=== PATIENT | female | born 1965 | race American Indian/Alaskan Native ===

== ENCOUNTER 2020-07-16 02:34 | Emergency (ER) | payer MEDICARE ==
--- NOTE | 2020-07-16 04:04 | Emergency Department Report ---
HPI - General Chief Complaint: Medical Clearance Time Seen by Provider: 07/16/20 02:59 - HPI HPI: This is a 54-year-old female who presents to the emergency department with a complaint of some right knee pain that started earlier today. The patient had a total knee replacement done at [facility] on 07/09. She just started physical therapy today. Afterwards she felt like the knee and leg was swollen, warm, and she felt like she was having some numbness to the right foot and toes. She called her orthopedist and was told to go to the emergency department to check for blood clots. The patient is on gabapentin and oxycodone for pain. She is on Keflex and she is on Xarelto. She has a history of breast cancer, and diabetes. She denies any fever, nausea, vomiting, chest pain, shortness of breath. ED Past Medical Hx - Past Medical History Previous Medical History?: Yes Hx Hypertension: No Hx Diabetes: Yes Hx of Cancer: Yes (breast) - Surgical History Past Surgical History?: Yes Hx Cholecystectomy: Yes Additional Surgical History: x 1, Right knee - Social History Smoking Status: Never Smoker Substance Use Type: None - Medications Home Medications: Home Medications Medication Instructions Recorded Confirmed Last Taken Type Celecoxib [celeBREX] 200 mg PO BID 07/16/20 07/16/20 07/16/20 History Gabapentin [Neurontin] 300 mg PO QHS 07/16/20 07/16/20 07/15/20 History Rivaroxaban [Xarelto] 10 mg PO QDAY 07/16/20 07/16/20 07/16/20 History cephALEXin [Keflex] 500 mg PO Q6HR 07/16/20 07/16/20 07/16/20 History oxyCODONE [roxiCODONE] 5 mg PO Q6HR PRN 07/16/20 07/16/20 07/16/20 History ED Review of Systems ROS: Stated complaint: RIGHT KNEE PAIN/POST OP SURGERY Other details as noted in HPI Comment: All other systems reviewed and negative Constitutional: denies: chills, fever Eyes: denies: eye pain, vision change ENT: denies: ear pain, throat pain Respiratory: denies: cough, shortness of breath Cardiovascular: edema (Right knee/leg). denies: chest pain, palpitations Gastrointestinal: denies: abdominal pain, vomiting Genitourinary: denies: urgency, dysuria Musculoskeletal: joint swelling, arthralgia. denies: back pain Skin: denies: rash, pruritus Neurological: numbness. denies: headache Physical Exam - Physical Exam Vital Signs: Vital Signs 07/16/20 07/16/20 03:00 03:15 Temperature 98.3 F Pulse Rate 104 H 93 H Respiratory 15 11 L Rate Blood Pressure 137/83 125/66 O2 Sat by Pulse 95 96 Oximetry Physical Exam: GENERAL: The patient is well-developed well-nourished. HENT: Normocephalic. Atraumatic. Patient has moist mucous membranes. EYES: Extraocular motions are intact. NECK: Supple. Trachea is midline. CHEST/LUNGS: Clear to auscultation. There is no respiratory distress noted. HEART/CARDIOVASCULAR: Regular. There is no tachycardia. There is no murmur. ABDOMEN: There is no abdominal distention. SKIN: Skin is warm and dry. There is some nonpitting swelling to the circumferential right knee, distal femur and proximal tib-fib. There is an anterior midline incision seen to the anterior right knee that appears intact. There is some surrounding ecchymosis, but no erythema, current bleeding or purulent discharge. NEURO: The patient is awake, alert, and oriented. The patient is cooperative. Normal speech. MUSCULOSKELETAL: There is tenderness to palpation to the right knee. Decreased range of motion secondary to pain and swelling. +2/4 dorsalis pedis pulse and capillary refill less than 2 seconds to the affected right lower extremity. ED Course Vital Signs 07/16/20 07/16/20 03:00 03:15 Temperature 98.3 F Pulse Rate 104 H 93 H Respiratory 15 11 L Rate Blood Pressure 137/83 125/66 O2 Sat by Pulse 95 96 Oximetry ED Medical Decision Making - Lab Data Result diagrams: 07/16/20 03:46 - Radiology Data Radiology results: report reviewed, image reviewed interpreted by me: X-ray of the right knee does not show any fracture, dislocation, but shows moderate soft tissue swelling. DUPLEX DOPPLER LOWER EXTREMITY VEINS, RIGHT INDICATION: right leg pain, s/p surgery. TECHNIQUE: Duplex doppler imaging was performed through the veins of the right lower extremity using venous compression and other maneuvers. COMPARISON: No relevant prior imaging study available. FINDINGS: Right Common femoral vein: Negative. Right Superficial femoral vein: Negative. Right Popliteal vein: Negative. Right Calf veins: Negative. Additional findings: None.. IMPRESSION: Negative for DVT. - Medical Decision Making This patient presents to the emergency department with right knee pain and swelling after doing physical therapy today and about 1 week status post total right knee replacement. Both the patient and her orthopedist were concerned that she could have developed a DVT. The patient is on anticoagulation. Right lower extremity venous Doppler ultrasound was negative for DVT. An x-ray was done that shows that the hardware is intact without any signs of fracture, dislocation, soft tissue gas. Patient's vital signs are reassuring including being afebrile. A CBC was obtained and the patient does not have any leukocytosis. The patient's pain and swelling is most likely secondary to her first session of physical therapy status post knee replacement. She will be discharged home to follow-up with her primary care physician and orthopedist. She has narcotic pain medication, gabapentin, antibiotics and anticoagulation. She will return to the emergency department with any worsening of her symptoms or with any acute distress. Critical Care Time: No Critical care attestation.: If time is entered above; I have spent that time in minutes in the direct care of this critically ill patient, excluding procedure time. ED Disposition Clinical Impression: Postoperative pain of knee, Pain and swelling of right knee Disposition: DC- TO HOME OR SELFCARE Is pt being admited?: No Condition: Stable Instructions: Knee Pain (ED), Arthralgia (ED) Additional Instructions: Please follow-up with your orthopedist in the next 1 to 2 days without fail. Return to the closest emergency department with any worsening of your symptoms or with any acute distress. Continue taking all of your medications as previously prescribed. Referrals: Orthopedist, Your [Other] - 2-3 Days Time of Disposition: 04:50
[2020-07-16 04:20] LABS: Basophils % (Auto) 0.2 % (0.0-1.8); Eosinophils # (Auto) 0.2 K/mm3 (0.0-0.4); Eosinophils % (Auto) 1.9 % (0.0-4.3); Hematocrit 26.2 % (30.3-42.9); Hemoglobin 8.8 gm/dl (10.1-14.3); Lymphocytes # (Auto) 1.6 K/mm3 (1.2-5.4); Lymphocytes % (Auto) 17.8 % (13.4-35.0); Mean Corpuscular HGB Conc 34 % (30-34); Mean Corpuscular Volume 91 fl (79-97); Monocytes # (Auto) 0.8 K/mm3 (0.0-0.8); Monocytes % (Auto) 8.7 % (0.0-7.3); Platelet Count 235 K/mm3 (140-440); Red Blood Count 2.87 M/mm3 (3.65-5.03); Red Cell Distribution Width 14.8 % (13.2-15.2)
[2020-07-16] MEDS ORDERED: MORPHINE 4 MG/1 ML INJ IM ONE (04:36)
--- NOTE | 2020-07-16 04:44 | Vascular Lab Report ---
DUPLEX DOPPLER LOWER EXTREMITY VEINS, RIGHT INDICATION: right leg pain, s/p surgery. TECHNIQUE: Duplex doppler imaging was performed through the veins of the right lower extremity using venous comp ression and other maneuvers. COMPARISON: No relevant prior imaging study available. FINDINGS: Right Common femoral vein: Negative. Right Superficial femoral vein: Negative. Right Popliteal vein: Negative. Right Calf veins: Negative. Additional findings: None.. IMPRESSION: Negative for DVT. Signer Name: John Valencia MD Signed: 07/16/2020 4:39 AM Workstation Name: [id number]
--- NOTE | 2020-07-16 04:47 | XRay Report ---
RIGHT KNEE 3 VIEWS INDICATION / CLINICAL INFORMATION: right knee pain, S/P knee replacement COMPARISON: None available. FINDINGS: BONES / JOINT(S): Previous placement of right knee prosthesis. Satisfactory alignment. No fracture or loosening. SOFT TISSUES: Diffuse soft tissue swelling. ADDITIONAL FINDINGS: None. Signer Name: John Valencia MD Signed: 07/16/2020 4:43 AM Workstation Name: [id number]
[2020-07-16 05:40] VITALS: BP 118/69
== END 2020-07-16 05:15 | disposition home or self-care (01) ==
LOC: ED 02:34
DX: G89.18 Other acute postprocedural pain (principal); M25.561 Pain in right knee; M79.89 Other specified soft tissue disorders; Z79.899 Other long term (current) drug therapy; E11.9 Type 2 diabetes mellitus without complications; Z98.890 Other specified postprocedural states; Z90.49 Acquired absence of other specified parts of digestive tract; Z85.3 Personal history of malignant neoplasm of breast
CPT/HCPCS: 36415; 73562; 85025; 93971; 96372; 99285; J2270